=== PATIENT | male | born 1980 | race African-American/Black ===

== ENCOUNTER → 2018-11-07 | Outpatient (REF) ==
--- NOTE | 2018-11-07 12:36 | REP ---
Thoracic spine three views: There is mild scoliosis convex right at the mid thoracic spine left at the inferior thoracic spine. Vertebral body heights and alignment are normal. Interspacing is normal. The pedicles are unremarkable. Impression: Mild scoliosis. Otherwise, negative thoracic spine. Electronically Signed by Eliel Menendez MD 11/07/2018 12:28 P
--- NOTE | 2018-11-07 12:40 | REP ---
Lumbar spine three views: There is mild scoliosis convex right. Vertebral body heights, interspacing and alignment are normal. There is no spondylolysis or spondylolisthesis. The pedicles, facets and sacroiliac articulations are unremarkable. Mineralization is normal. Impression: Mild scoliosis, otherwise negative lumbar spine. Electronically Signed by Eliel Menendez MD 11/07/2018 12:31 P
== END ==
LOC: M SMT 11:03
PROVIDERS: ATTEND Internal Medicine
DX: Z02.71 Encounter for disability determination (principal)

== ENCOUNTER → 2019-01-23 | Outpatient (REF) | LOC: M LAB 12:25 | PROVIDERS: ATTEND Nurse Practitioner Adult Health | DX: Z02.1 Encounter for pre-employment examination (principal) ==

== ENCOUNTER 2023-06-17 11:03 | Emergency (ER) | payer OTHER ==
[~2023-06-17] VITALS: Ht 182.9 cm; Wt 92.4 kg
[2023-06-17] MEDS ORDERED: MELO10CA2 PO (11:17)
[2023-06-17] MEDS ORDERED: ALBU6.7H6 INH (11:17)
[2023-06-17] MEDS ORDERED: CORT5TAB2 PO (11:17)
[2023-06-17] MEDS ORDERED: NORT10CA2 PO (11:17)
[2023-06-17] MEDS ORDERED: acyclovir PO (11:19)
[2023-06-17] MEDS ORDERED: VARE1TAB7 PO (11:19)
[2023-06-17] MEDS ORDERED: IBUP200C25 PO (11:38)
[2023-06-17 12:52] LABS: HEMATOCRIT 37.2 % (42.0-52.0); HEMOGLOBIN 12.7 g/dl (13.5-17.5); MEAN CORPUSCULAR HEMOGLOBIN 34.5 pg (27.0-33.0); MEAN CORPUSCULAR HGB CONC 34.1 g/dl (32.0-36.5); MEAN CORPUSCULAR VOLUME 101.1 fl (80.0-96.0); PLATELET COUNT, AUTOMATED 298 10^3/uL (150-450); RED BLOOD COUNT 3.68 10^6/uL (4.30-6.10)
[2023-06-17 12:57] LABS: ERYTHROCYTE SEDIMENTATION RATE 85 mm/hr (0-15)
[2023-06-17 13:23] LABS: BLOOD UREA NITROGEN 7 MG/DL (9-23); CALCIUM LEVEL 8.5 MG/DL (8.5-10.1); CARBON DIOXIDE LEVEL 28 MMOL/L (20-31); CHLORIDE LEVEL 105 MMOL/L (98-107); CREATININE FOR GFR 0.91 MG/DL (0.70-1.30); GLOMERULAR FILTRATION RATE > 60.0 (>60); GLUCOSE, FASTING 86 MG/DL (60-100); POTASSIUM SERUM 4.1 MMOL/L (3.5-5.1); SODIUM LEVEL 135 MMOL/L (136-145)
[2023-06-17] MEDS ORDERED: FLAG375C PO (14:07)
[2023-06-17] MEDS ORDERED: CIPR-249 PO (14:07)
[2023-06-17 14:12] VITALS: BP 123/87; TEMP 97.9; O2SAT 100
[2023-06-17] MEDS: metroNIDAZOLE (FLAGYL) 500MG TABLET PO ONE (14:24)
[2023-06-17] MEDS: CIPROFLOXACIN 500MG TABLET PO ONE (14:24)
== END 2023-06-17 14:26 | disposition home or self-care (01) ==
LOC: M ED 11:03
DX: K61.1 Rectal abscess (principal); J45.909 Unspecified asthma, uncomplicated; I10 Essential (primary) hypertension; F10.10 Alcohol abuse, uncomplicated; Z88.0 Allergy status to penicillin; Z88.1 Allergy status to other antibiotic agents; Z88.5 Allergy status to narcotic agent; Z88.8 Allergy status to other drugs, medicaments and biological substances; Z79.52 Long term (current) use of systemic steroids; Z79.2 Long term (current) use of antibiotics; Z79.899 Other long term (current) drug therapy